=== PATIENT | female | born 1980 | race Caucasian/White ===

== ENCOUNTER 2019-09-18 08:50 | Emergency (ER) | payer OTHER ==
[~2019-09-18] VITALS: Ht 170.2 cm; Wt 68.0 kg
--- NOTE | 2019-09-18 09:10 | NUR ---
PT PRESENTED TO ER IN STABLE CONDITION W/STEADY GAIT C/O CHRONIC COUGH THATS BEEN WORSE YESTDAY. PT IS A/OX4, NO NEURO DEFICIT NOTED. REGULAR HR AND RHYTHM. LUNG SOUNDS CLEAR , NO SOB NOTED. NO GI/ COMPLAINTS.
--- NOTE | 2019-09-18 09:25 | NUR ---
SENIOR FIRMWARE ENGINEER IN ROOM
--- NOTE | 2019-09-18 09:40 | NUR ---
Patient discharged to home in stable condition. Written and verbal after care instructions given. Patient verbalizes understanding of instructions. Stressed follow up or return to ER for worsening s/s.All belongings w/patient.
[2019-09-18 09:47] VITALS: BP 119/68
== END 2019-09-18 09:42 | disposition home or self-care (01) ==
LOC: ER 08:50
DX: R05 Cough (principal); R06.2 Wheezing
CPT/HCPCS: 71045; A4663